=== PATIENT | female | born 1940 | race Caucasian/White ===

== ENCOUNTER → 2021-10-21 | Outpatient (CLI) | payer MEDICARE, OTHER ==
[~2021-10-21] MED LIST: ASPIRIN EC81 MG PO; CARAFATE1 GM PO; CLARITIN10 M2 PO; CYTOTEC 100 M100 MCG PO; ELIQUIS5 MG PO; FEOSOL325 MG PO; GLUCOSAMINE CH1 EAC2 PO; HYDROCHLOROTHIA25 MG PO; ICAPS AREDS SO1 EACH PO; LIPITOR TAB 2020 MG PO; LOPRESSOR 25 MG25 MG PO; NAPROXEN500 MG PO; OMEGA-31000 MG PO; OMNICEF 300 MG300 MG PO; PROTONIX 40 MG40 M1 PO; PROTONIX40 MG PO; SUPER B COMPLE150 MG PO; VITAMIN D-32000 UNIT PO; XARELTO1 EACH PO; ZESTRIL5 MG PO
== END ==
LOC: HEART 5 09:30
DX: I25.10 Atherosclerotic heart disease of native coronary artery without angina pectoris (principal); I25.5 Ischemic cardiomyopathy; I08.3 Combined rheumatic disorders of mitral, aortic and tricuspid valves; Z95.0 Presence of cardiac pacemaker
CPT/HCPCS: 93306

== ENCOUNTER → 2021-10-28 | Outpatient (CLI) | payer MEDICARE, OTHER ==
[~2021-10-28] MED LIST changes: +CLINDAMYCIN HC300 MG PO; +HYDROCODON-ACE1 EAC4 PO; +LEVOFLOXACIN500 MG PO
== END ==
LOC: CATH 07:16
DX: Z45.010 Encounter for checking and testing of cardiac pacemaker pulse generator [battery] (principal); I49.5 Sick sinus syndrome; I11.0 Hypertensive heart disease with heart failure; I50.20 Unspecified systolic (congestive) heart failure; I25.5 Ischemic cardiomyopathy; I25.10 Atherosclerotic heart disease of native coronary artery without angina pectoris; E78.5 Hyperlipidemia, unspecified; I25.2 Old myocardial infarction; Z87.891 Personal history of nicotine dependence; Z88.1 Allergy status to other antibiotic agents; Z88.8 Allergy status to other drugs, medicaments and biological substances; Z79.82 Long term (current) use of aspirin; Z79.899 Other long term (current) drug therapy; Z20.822 Contact with and (suspected) exposure to COVID-19
CPT/HCPCS: 33213; 99152; 99153; C1785; J2250; J3010; J3370; J7040; J7050